=== PATIENT | female | born 1970 | race Caucasian/White ===

== ENCOUNTER 2017-02-15 10:22 | Inpatient (IN) | payer OTHER ==
[~2017-02-15] VITALS: Ht 165.1 cm; Wt 95.3 kg
[~2017-02-15 10:22] MED LIST: ALBUAER3 INH; AMIT24CA5 PO; BENA10TA PO; BETH25TA2 PO; BUTATAB6 PO; CYAN1000P IM; CYCL1TAB29 PO; DESM1TAB15 PO; DICY10CA12 PO; DULO1CAP3 PO; ESTR.625 PO; FLUC200T2 PO; FURO40TA PO; GABA600T PO; HYDR200T3 PO; HYDR4TAB PO; LEVO50TA4 PO; LINA290C PO; MAGICADU2 SWISH-SWAL; METO25TA3 PO; MYCO500T PO; PANT20 PO; REST0.05 EACH EYE; ZOLP10TA3 PO
[2017-02-15] MEDS: SODIUM CHLOR 0.9% 1000 ML INJ 1,000 ML IV SCH ×2 (15:19→23:54)
[2017-02-15] MEDS ORDERED: LACTULOSE SYRUP 20 GM/30 ML CUP PO PRN (15:30)
[2017-02-15] MEDS ORDERED: ONDANSETRON HCL 4 MG/2 ML VIAL IVP PRN (15:30)
[2017-02-15] MEDS ORDERED: BISACODYL 10 MG SUPP RECTAL PRN (15:30)
[2017-02-15] MEDS ORDERED: SODIUM CHLORIDE 0.9% FLUSH 10 ML FLUSH IV FLUSH PRN (15:30)
[2017-02-15] MEDS ORDERED: NALOXONE HCL 0.4 MG/ML AMP IV PUSH PRN (15:30)
--- NOTE | 2017-02-15 15:49 | HHI.HP ---
[facility]Staff Admission Diagnosis Diagnoses: Chief Complaint: Lightheadedness/multiple falls/hypotension Travel History International Travel<30 Days: No Contact w/Intl Traveler <30 Da: No History of Present Illness This is a 46-year-old female past medical history of lupus, fibromyalgia, chronic pain syndrome, and gastroparesis who presented with lightheadedness/ multiple falls. Patient stated that this has been ongoing problem for the past year. She stated that she was recently admitted to [facility] for the same reason a few weeks ago and she was not told why she was having multiple falls. Patient stated that she was also told that she had some acute renal failure at that time. She stated that symptoms recur this morning and which she felt very lightheadedness and when she would bend down she would pass out. Patient stated that she remember passing out. Denies any incontinence with the episode. Patient stated that she was recently changed to Dilaudid this month prior she was on tramadol for pain. Otherwise patient denies any urinary symptoms or upper respiratory symptoms. Denies any fevers or chills. She stated she continues to have good UOP. She stated that she does see a identification technician in [place] due to her lupus but was not able to tell me who. At the moment the only complaint that patient has is that she wants to eat food. Patient was seen in [place] in the ER when she was found to be hypotensive. She was given IV fluids and Levaquin with improvement in her blood pressure. All other review systems reviewed and negative. Past Family Social History Past Medical History Lupus, fibromyalgia, chronic pain syndrome, carpal tunnel syndrome, gastroparesis Past Surgical History Per patient abdominal surgery one year ago. Tracheostomy placement and removal. Partial removal or lungs due to empyema Reported Medications Current Medications Sodium Chloride 1,000 ml @ 100 mls/hr Q10H IV ; Start 02/15/17 at 15:19 Sodium Chloride (NS Flush) 2 ml UNSCH PRN IV FLUSH FLUSH AFTER USING IV ACCESS ; Start 02/15/17 at 15:30 Sodium Chloride (NS Flush) 2 ml BID IV FLUSH ; Start 02/15/17 at 21:00 Ondansetron HCl (Zofran Inj) 4 mg Q6H PRN IVP NAUSEA OR VOMITING; Start at 15:30; Stop 02/15/17 at 16:07; Status DC Naloxone HCl (Narcan Inj) 0.4 mg UNSCH PRN IV PUSH SEE LABEL COMMENTS; Start 02/15/17 at 15:30 Senna/Docusate Sodium (Diana-Colace) 1 tab BID PO ; Start 02/15/17 at 21:00 Magnesium Hydroxide (Milk Of Magnesia Liq) 30 ml Q12HR PRN PO MILD - MODERATE CONSTIPATION; Start 02/15/17 at 21:00 Sennosides (Senokot) 17.2 mg Q12HR PRN PO MODERATE - SEVERE CONSTIPATION; Start 02/15/17 at 21:00 Bisacodyl (Dulcolax Supp) 10 mg DAILY PRN RECTAL SEVERE CONSITIPATION; Start 02/15/17 at 15:30 Lactulose (Lactulose Liq) 30 ml DAILY PRN PO SEVERE CONSITIPATION; Start 02/15 at 15:30 Levofloxacin/ Dextrose 100 ml @ 100 mls/hr Q48H IV ; Start 02/17/17 at 09:00 Heparin Sodium (Porcine) (Heparin Inj) 5,000 units Q12HR SQ ; Start 02/15/17 at 21:00 Miscellaneous Information Patient in critical care unit? Ass... Q361D .XX ; Start 02/15/17 at 16:30 Chlorhexidine Gluconate (Chlorhexidine 2% Cloth) 3 pack DAILY@04 TOPICAL ; Start 02/16/17 at 04:00; Stop 02/20/17 at 04:01 Chlorhexidine Gluconate (Chlorhexidine 2% Cloth) 3 pack UNSCH PRN TOPICAL HYGIENIC CARE; Start 02/15/17 at 16:45; Stop 02/20/17 at 16:30 Pneumococcal Polyvalent Vaccine (Pneumovax-23 Inj) 25 mcg ONCE ONCE IM ; Start 02/16/17 at 10:00; Stop 02/16/17 at 10:01 Influenza Virus Vaccine (Flu (Quadrivalent) Vaccine Inj) 0.5 ml ONCE ONCE IM ; Start 02/16/17 at 10:00; Stop 02/16/17 at 10:01 Allergies: Coded Allergies: Penicillins (Verified Allergy, Severe, CAN NOT TAKE DUE TO LUPUS, 02/15/17 ) acetaminophen (Verified Allergy, Severe, Anaphylaxis, 02/15/17) hydrocodone (Unverified Allergy, Severe, Anaphylaxis, 02/15/17) ketorolac (Unverified Allergy, Severe, Anaphylaxis, 02/15/17) meperidine (Unverified Allergy, Severe, Anaphylaxis, 02/15/17) ondansetron (Unverified Allergy, Severe, HEADACHE, 02/15/17) oxycodone (Verified Allergy, Severe, Anaphylaxis, 02/15/17) penicillin G (Unverified Allergy, Severe, Anaphylaxis, 02/15/17) Active Ordered Medications Current Medications Sodium Chloride 1,000 ml @ 100 mls/hr Q10H IV ; Start 02/15/17 at 15:19 Sodium Chloride (NS Flush) 2 ml UNSCH PRN IV FLUSH FLUSH AFTER USING IV ACCESS ; Start 02/15/17 at 15:30 Sodium Chloride (NS Flush) 2 ml BID IV FLUSH ; Start 02/15/17 at 21:00 Ondansetron HCl (Zofran Inj) 4 mg Q6H PRN IVP NAUSEA OR VOMITING; Start at 15:30; Stop 02/15/17 at 16:07; Status DC Naloxone HCl (Narcan Inj) 0.4 mg UNSCH PRN IV PUSH SEE LABEL COMMENTS; Start 02/15/17 at 15:30 Senna/Docusate Sodium (Diana-Colace) 1 tab BID PO ; Start 02/15/17 at 21:00 Magnesium Hydroxide (Milk Of Magnesia Liq) 30 ml Q12HR PRN PO MILD - MODERATE CONSTIPATION; Start 02/15/17 at 21:00 Sennosides (Senokot) 17.2 mg Q12HR PRN PO MODERATE - SEVERE CONSTIPATION; Start 02/15/17 at 21:00 Bisacodyl (Dulcolax Supp) 10 mg DAILY PRN RECTAL SEVERE CONSITIPATION; Start 02/15/17 at 15:30 Lactulose (Lactulose Liq) 30 ml DAILY PRN PO SEVERE CONSITIPATION; Start 02/15 at 15:30 Levofloxacin/ Dextrose 100 ml @ 100 mls/hr Q48H IV ; Start 02/17/17 at 09:00 Heparin Sodium (Porcine) (Heparin Inj) 5,000 units Q12HR SQ ; Start 02/15/17 at 21:00 Miscellaneous Information Patient in critical care unit? Ass... Q361D .XX ; Start 02/15/17 at 16:30 Chlorhexidine Gluconate (Chlorhexidine 2% Cloth) 3 pack DAILY@04 TOPICAL ; Start 02/16/17 at 04:00; Stop 02/20/17 at 04:01 Chlorhexidine Gluconate (Chlorhexidine 2% Cloth) 3 pack UNSCH PRN TOPICAL HYGIENIC CARE; Start 02/15/17 at 16:45; Stop 02/20/17 at 16:30 Pneumococcal Polyvalent Vaccine (Pneumovax-23 Inj) 25 mcg ONCE ONCE IM ; Start 02/16/17 at 10:00; Stop 02/16/17 at 10:01 Influenza Virus Vaccine (Flu (Quadrivalent) Vaccine Inj) 0.5 ml ONCE ONCE IM ; Start 02/16/17 at 10:00; Stop 02/16/17 at 10:01 Family History She stated that all family members are healthy. Social History Patient denies any alcohol or illicit drug use. Denies any current tobacco use. Physical Exam Vital Signs Vital Signs Date Time Temp Pulse Resp B/P (MAP) Pulse Ox O2 Delivery O2 Flow Rate FiO2 02/15/17 16:20 98.9 109 18 119/65 (83) 94 Laboratory Tests Test 02/15/17 16:00 Current Medications Medications (Trade) Dose Ordered Sig/Adams Route PRN Reason Start Time Stop Time Status Last Admin Dose Admin Sodium Chloride 1,000 ml @ 100 mls/hr Q10H IV 02/15/17 15:19 Sodium Chloride (NS Flush) 2 ml UNSCH PRN IV FLUSH FLUSH AFTER USING IV ACCESS 02/15/17 15:30 Sodium Chloride (NS Flush) 2 ml BID IV FLUSH 02/15/17 21:00 Ondansetron HCl (Zofran Inj) 4 mg Q6H PRN IVP NAUSEA OR VOMITING 02/15/17 15:30 02/15/17 16:07 DC Naloxone HCl (Narcan Inj) 0.4 mg UNSCH PRN IV PUSH SEE LABEL COMMENTS 02/15/17 15:30 Senna/Docusate Sodium (Diana-Colace) 1 tab BID PO 02/15/17 21:00 Magnesium Hydroxide (Milk Of Magnesia Liq) 30 ml Q12HR PRN PO MILD - MODERATE CONSTIPATION 02/15/17 21:00 Sennosides (Senokot) 17.2 mg Q12HR PRN PO MODERATE - SEVERE CONSTIPATION 02/15/17 21:00 Bisacodyl (Dulcolax Supp) 10 mg DAILY PRN RECTAL SEVERE CONSITIPATION 02/15/17 15:30 Lactulose (Lactulose Liq) 30 ml DAILY PRN PO SEVERE CONSITIPATION 02/15/17 15:30 Levofloxacin/ Dextrose 100 ml @ 100 mls/hr Q48H IV 02/17/17 09:00 Heparin Sodium (Porcine) (Heparin Inj) 5,000 units Q12HR SQ 02/15/17 21:00 Miscellaneous Information Patient in critical care unit? Ass... Q361D .XX 02/15/17 16:30 Chlorhexidine Gluconate (Chlorhexidine 2% Cloth) 3 pack DAILY@04 TOPICAL 02/16/17 04:00 02/20/17 04:01 Chlorhexidine Gluconate (Chlorhexidine 2% Cloth) 3 pack UNSCH PRN TOPICAL HYGIENIC CARE 02/15/17 16:45 02/20/17 16:30 Pneumococcal Polyvalent Vaccine (Pneumovax-23 Inj) 25 mcg ONCE ONCE IM 02/16/17 10:00 02/16/17 10:01 Influenza Virus Vaccine (Flu (Quadrivalent) Vaccine Inj) 0.5 ml ONCE ONCE IM 02/16/17 10:00 02/16/17 10:01 Physical Exam GENERAL: This is a well-nourished, well-developed patient, in no apparent distress. SKIN: No rashes, ecchymoses or lesions. Cool and dry. HEAD: Atraumatic. Normocephalic. No temporal or scalp tenderness. EYES: Pupils equal round and reactive. Extraocular motions intact. No scleral icterus. No injection or drainage. ENT: Nose without bleeding, purulent drainage or septal hematoma. Throat without erythema, tonsillar hypertrophy or exudate. Uvula midline. Airway patent. NECK: Trachea midline. No JVD or lymphadenopathy. Supple, nontender, no meningeal signs. CARDIOVASCULAR: Regular rate and rhythm without murmurs, gallops, or rubs. RESPIRATORY: Clear to auscultation. Breath sounds equal bilaterally. No wheezes , rales, or rhonchi. GASTROINTESTINAL: Abdomen soft, non-tender, nondistended. No hepato-splenomegaly , or palpable masses. No guarding. MUSCULOSKELETAL: Extremities without clubbing, cyanosis, or edema. No joint tenderness, effusion, or edema noted. No calf tenderness. Negative Homans sign bilaterally. NEUROLOGICAL: Awake and alert. Cranial nerves II through XII intact. Motor and sensory grossly within normal limits. Five out of 5 muscle strength in all muscle groups. Normal speech. Caprini VTE Risk Assessment Caprini VTE Risk Assessment: Mod/High Risk (score >= 2) Caprini Risk Assessment Model Point Value = 1 Point Value = 2 Point Value = 3 Point Value = 5 Age 41-60 Minor surgery BMI > 25 kg/m2 Swollen legs Varicose veins or History of unexplained or recurrent spontaneous Oral contraceptives or hormone replacement Sepsis (< 1 month) Serious lung disease, including pneumonia (< 1 month) Abnormal pulmonary function Acute myocardial infarction Congestive heart failure (< 1 month) History of inflammatory bowel disease Medical patient at bed rest Age 61-74 Arthroscopic surgery Major open surgery (> 45 min) Laparoscopic surgery (> 45 min) Malignancy Confined to bed (> 72 hours) Immobilizing plaster cast Central venous access Age >= 75 History of VTE Family history of VTE Factor V Leiden Prothrombin [id number] Lupus anticoagulant Anticardiolipin antibodies Elevated serum homocysteine Heparin-induced thrombocytopenia Other congenital or acquired thrombophilia Stroke (< 1 month) Elective arthroplasty Hip, pelvis, or leg fracture Acute spinal cord injury (< 1 month) Prophylaxis Regimen Total Risk Factor Score Risk Level Prophylaxis Regimen 0-1 Low Early ambulation 2 Moderate Order ONE of the following: *Sequential Compression Device (SCD) *Heparin 5000 units SQ BID 3-4 Higher Order ONE of the following medications: *Heparin 5000 units SQ TID *Enoxaparin/Lovenox 40 mg SQ daily (WT < 150 kg, CrCl > 30 mL/min) *Enoxaparin/Lovenox 30 mg SQ daily (WT < 150 kg, CrCl > 10-29 mL/min) *Enoxaparin/Lovenox 30 mg SQ BID (WT < 150 kg, CrCl > 30 mL/min) AND/OR *Sequential Compression Device (SCD) 5 or more Highest Order ONE of the following medications: *Heparin 5000 units SQ TID (Preferred with Epidurals) *Enoxaparin/Lovenox 40 mg SQ daily (WT < 150 kg, CrCl > 30 mL/min) *Enoxaparin/Lovenox 30 mg SQ daily (WT < 150 kg, CrCl > 10-29 mL/min) *Enoxaparin/Lovenox 30 mg SQ BID (WT < 150 kg, CrCl > 30 mL/min) AND *Sequential Compression Device (SCD) Assessment and Plan Assessment and Plan 46-year-old female with chronic pain syndrome and fibromyalgia who presented with multiple falls and lightheadedness Lightheadedness -Labs reviewed from the clinic ER significant for UA suggesting possible UTI, leukocytosis 23,000, creatinine of 3.01. Patient was also found to be hypotensive with systolic blood pressure in the 70s while in the tone of. At the moment blood pressure has improved since then. -Most likely lightheadedness to hypotension. -Should improve with treatment hypertension. SIRS/Sepsis -UA suggest possible UTI. Chest x-ray showed minimal bilateral basilar airspace disease but patient asymptomatic in regards to her upper respiratory system. Patient does have leukocytosis and tachycardia with a possible source of infection. Urine cultures and blood cultures already obtained. -Treat as sepsis until it is ruled out. -Patient already given IV fluid bolus and iron IV maintenance fluids and blood pressure has improved. Continue with IV fluids. -Patient was given dose of Levaquin will continue Levaquin renal he does. -To monitor grossly. Hypotension -Maybe secondary to infection versus Dilaudid. -Blood pressure has improved drastically with IV fluids. -We'll continue IV fluids. -Patient to be monitor closely in the ICU. Acute renal failure -In December patient had creatinine of 1. -Patient states she is making good urine output. Most likely due to hypoperfusion. Will put patient on IV fluids. -Strict ins and outs. Avoid nephrotoxins. Consult identification technician. Asymptomatic bacteriuria -Since patient was found to be hypotensive, had a leukocytosis 23,000 and UA suggesting UTI will treat empirically for UTI. -Patient stated unable to take penicillin due to angioedema the throat. She was given a dose of Levaquin 750 mg in the ED. Will continue Levaquin renally dosed pending urine cultures. -Blood cultures also pending. -Continue to monitor clinically. Multiple falls in the past year -Most likely secondary to narcotic use. -Will monitor. -Consult PT. Lupus, fibromyalgia, chronic pain syndrome, gastroparesis, carpal tunnel syndrome -Will need to hold pain medication due to hypotension. -Patient was a transfer once medically list is updated will resume other medications. DVT prophylaxis -Heparin renally dose. Discussed Condition With patient, her [facility] nurse and her over the phone Physician Certification 2 Midnight Certification Type: Admission for Inpatient Services Order for Inpatient Services The services are ordered in accordance with Medicare regulations or non- Medicare payer requirements, as applicable. In the case of services not specified as inpatient-only, they are appropriately provided as inpatient services in accordance with the 2-midnight benchmark. Estimated LOS (days): 5 5 days is the estimated time the patient will need to remain in the hospital, assuming treatment plan goals are met and no additional complications. Post-Hospital Plan: [place] Audrey Hill MD Feb 15, 2017 15:49
[2017-02-15 16:00] VITALS: PULSE 111
[2017-02-15 16:20] VITALS: BP 119/65; PULSE 109; RESP 18; TEMP 98.9; O2SAT 94
[2017-02-15] MEDS ORDERED: CHLORHEXIDINE GLUCONATE 2 % 1 PACK (2 CLOTHS)(extra cloths) TOPICAL PRN (16:45)
--- NOTE | 2017-02-15 17:13 | PD.CONS ---
HPI Service Nephrology Consult Requested By Reason for Consult VANESSA Primary Care Physician Non-Staff History of Present Illness Ms. Funk has a complicated medical history. She has been diagnosed with lupus, fibromyalgia, DI, hypertension. She reports that she had renal biopsy because of proteinuria and hematuria at [facility] in September of this year. It was reportedly "normal". She has history of bowel perforation in February of last year which resulted in surgery that involved segmental resection of bowel, splenectomy. She also has had lobectomy (left lung) earlier this year for unclear reasons. She also has been told that she has DI and has been on desmopressin. Her creatinine was 1 in December. Today she went to [facility] in [place] and was noted to have creatinine of 3.1. She was hypotensive. UTI was also diagnosed. She apparently was confused. No confusion is apparent currently. Review of Systems Constitutional: COMPLAINS OF: Fatigue, DENIES: Fever, Weight gain Endocrine: COMPLAINS OF: Polyuria Ears, nose, mouth, throat: DENIES: Tinnitus Cardiovascular: DENIES: Chest pain, Palpitations Gastrointestinal: DENIES: Abdominal pain Integumentary: DENIES: Abnormal pigmentation Neurologic: DENIES: Abnormal gait, Headache Psychiatric: COMPLAINS OF: Confusion Past Family Social History Allergies: Coded Allergies: Penicillins (Verified Allergy, Severe, CAN NOT TAKE DUE TO LUPUS, 02/15/17 ) acetaminophen (Verified Allergy, Severe, Anaphylaxis, 02/15/17) hydrocodone (Unverified Allergy, Severe, Anaphylaxis, 02/15/17) ketorolac (Unverified Allergy, Severe, Anaphylaxis, 02/15/17) meperidine (Unverified Allergy, Severe, Anaphylaxis, 02/15/17) ondansetron (Unverified Allergy, Severe, HEADACHE, 02/15/17) oxycodone (Verified Allergy, Severe, Anaphylaxis, 02/15/17) penicillin G (Unverified Allergy, Severe, Anaphylaxis, 02/15/17) Past Medical History "Lupus" Fibromyalgia Hypertension Past Surgical History lobectomy Splenectomy Tonsillectomy Arthroscopic surgeries on the left knee Surgery for perforated bowel. Reported Medications Arpgxqjvgx-Wqsfbxbbncwlb-Aqdzqefh 50-325-40 Mg Tab 1 Tab PO Q4H PRN Do not exceed 6 tablets/day. Restasis Opth 0.05% (Cyclosporine Opth 0.05%) 0.05% Emul 1 Drop EACH EYE BID Premarin (Estrogens Conjugated) 0.625 Mg Tab 0.625 Mg PO DAILY Protonix (Pantoprazole Sodium) 20 Mg Tab 20 Mg PO DAILY Mycophenolate (Mycophenolate Mofetil) 500 Mg Tab 1,000 Mg PO BID Zolpidem (Zolpidem Tartrate) 10 Mg Tab 12.5 Mg PO HS PRN Metoprolol Tartrate 25 Mg Tab 25 Mg PO BID Linzess (Linaclotide) 290 Mcg Cap 290 Mcg PO DAILY Levothyroxine (Levothyroxine Sodium) 50 Mcg Tab 50 Mcg PO DAILY Hydroxychloroquine (Hydroxychloroquine Sulfate) 200 Mg Tab 200 Mg PO BID Takw with food Hydromorphone (Hydromorphone HCl) 4 Mg Tab 2 Mg PO TID Furosemide 40 Mg Tab 40 Mg PO BID Fluconazole 200 Mg Tab 200 Mg PO DAILY Gabapentin 600 Mg Tab 600 Mg PO TID Duloxetine DR (Duloxetine HCl) 60 Mg Capdr 60 Mg PO DAILY Dicyclomine (Dicyclomine HCl) 10 Mg Cap 10 Mg PO TID PRN Desmopressin (Desmopressin Acetate) 0.1 Mg Tab 0.1 Mg PO BID Flexeril (Cyclobenzaprine HCl) 10 Mg Tab 10 Mg PO BID Bethanechol 25 Mg Tab 25 Mg PO TID Benazepril (Benazepril HCl) 10 Mg Tab 10 Mg PO DAILY Cyanocobalamin Inj (Cyanocobalamin) 1,000 Mcg/Ml Inj 1,000 Mcg IM BIWEEKLY Amitiza (Lubiprostone) 24 Mcg Cap 24 Mg PO BID PRN Proair Hfa 8.5 GM Inh (Albuterol Sulfate) 90 Mcg/Act Aer 2 Puff INH BID PRN 108 mcg/actuation Active Ordered Medications Current Medications Medications (Trade) Dose Ordered Sig/Adams Route Start Time Stop Time Status Last Admin Sodium Chloride 1,000 ml @ 100 mls/hr Q10H IV 02/15/17 15:19 (NS Flush) 2 ml UNSCH PRN IV FLUSH 02/15/17 15:30 (NS Flush) 2 ml BID IV FLUSH 02/15/17 21:00 (Narcan Inj) 0.4 mg UNSCH PRN IV PUSH 02/15/17 15:30 (Diana-Colace) 1 tab BID PO 02/15/17 21:00 (Milk Of Magnesia Liq) 30 ml Q12HR PRN PO 02/15/17 21:00 (Senokot) 17.2 mg Q12HR PRN PO 02/15/17 21:00 (Dulcolax Supp) 10 mg DAILY PRN RECTAL 02/15/17 15:30 (Lactulose Liq) 30 ml DAILY PRN PO 02/15/17 15:30 Levofloxacin/ Dextrose 100 ml @ 100 mls/hr Q48H IV 02/17/17 09:00 (Heparin Inj) 5,000 units Q12HR SQ 02/15/17 21:00 Miscellaneous Information Patient in critical care unit? Ass... Q361D .XX 02/15/17 16:30 (Chlorhexidine 2% Cloth) 3 pack DAILY@04 TOPICAL 02/16/17 04:00 02/20/17 04:01 (Chlorhexidine 2% Cloth) 3 pack UNSCH PRN TOPICAL 02/15/17 16:45 02/20/17 16:30 (Pneumovax-23 Inj) 25 mcg ONCE ONCE IM 02/16/17 10:00 02/16/17 10:01 (Flu (Quadrivalent) Vaccine Inj) 0.5 ml ONCE ONCE IM 02/16/17 10:00 02/16/17 10:01 Family History reviewed, non contributory Social History with 5 children. No tobacco or ETOH Physical Exam Vital Signs Vital Signs Date Time Temp Pulse Resp B/P (MAP) Pulse Ox O2 Delivery O2 Flow Rate FiO2 02/15/17 16:20 98.9 109 18 119/65 (83) 94 02/15/17 16:00 111 Physical Exam GENERAL: awake, alert. SKIN: Warm and dry. HEAD: Normocephalic. EYES: No scleral icterus. No injection or drainage. NECK: Supple, trachea midline. No JVD or lymphadenopathy. CARDIOVASCULAR: Regular rate and rhythm without murmurs, gallops, or rubs. RESPIRATORY: Breath sounds equal bilaterally. No accessory muscle use. GASTROINTESTINAL: Abdomen soft, non-tender, nondistended. MUSCULOSKELETAL: No cyanosis, or edema. BACK: Nontender without obvious deformity. No CVA tenderness. Laboratory Laboratory Tests Test 02/15/17 16:00 Assessment and Plan Problem List: (1) Acute kidney injury ICD Codes: N17.9 - Acute kidney failure, unspecified Plan: VANESSA is likely due to hypotension, pre-renal azotemia. May have progressed to ATN. I do not believe lupus nephritis is playing a role. Continue IVF. Avoid nephrotoxic agents. Suspend antihypertensives and Lasix. Obtain renal US. Because of history of lupus, I will obtain GUILLERMO and complement levels. As mentioned above, she did have a renal biopsy in September of this year which was reportedly negative for lupus nephritis. (they can develop lupus flares periodically). Monitor urine output and renal function. (2) Essential (primary) hypertension ICD Codes: I10 - Essential (primary) hypertension Plan: she is maintained on Metoprolol and Benazepril both of which should be held because of hypotension. Monitor. Continue IVF. 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 She is definitely at risk for complications from multiple drug interactions and side effects. (4) UTI (urinary tract infection) ICD Codes: N39.0 - Urinary tract infection, site not specified Plan: She has been given Levaquin. (5) Lupus ICD Codes: L93.0 - Discoid lupus erythematosus Plan: See above. 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 Assessment and Plan Thanks for the consult. Laz Ross MD Feb 15, 2017 17:13
[2017-02-15 18:00] VITALS: PULSE 111
[2017-02-15 19:35] VITALS: O2SAT 94
[2017-02-15 20:00] VITALS: BP 102/56; PULSE 112; RESP 18; TEMP 100; O2SAT 95
[2017-02-15] MEDS: DOCUSATE SODIUM 50 MG/SENNA 8.6 MG TAB PO SCH (20:11)
[2017-02-15] MEDS: SODIUM CHLORIDE 0.9% FLUSH 10 ML FLUSH IV FLUSH SCH (20:11)
[2017-02-15] MEDS: HEPARIN SODIUM - SQ 10,000 UNITS/ML VIAL SQ SCH (20:11)
[2017-02-15] MEDS ORDERED: MAGNESIUM HYDROXIDE SUSP 30 ML CUP PO PRN (21:00)
[2017-02-15] MEDS ORDERED: SENNOSIDES 8.6 MG TAB PO PRN (21:00)
[2017-02-15 22:00] VITALS: PULSE 109
[2017-02-16] VITALS (14 sets, daily range): BP systolic 110–164; BP diastolic 58–97; PULSE 79–102; RESP 16–24; TEMP 98.3–99.5; O2SAT 94–100
[2017-02-16] MEDS ORDERED: CHLORHEXIDINE GLUCONATE 2 % 1 PACK (2 CLOTHS)(taper/protocol) TOPICAL SCH (04:00)
[2017-02-16 05:39] LABS: HEMATOCRIT 37.2 % (35.0-46.0); MEAN CELL VOLUME 94.6 FL (80.0-100.0); MEAN CORPUSCULAR HEMOGLOBIN 30.2 PG (27.0-34.0); MEAN CORPUSCULAR HGB CONC 31.9 % (32.0-36.0); PLATELET COUNT 302 TH/MM3 (150-450); RED BLOOD COUNT 3.93 MIL/MM3 (4.00-5.30); RED CELL DISTRIBUTION WIDTH 14.7 % (11.6-17.2); REVIEW FLAG FINAL; WHITE BLOOD COUNT 12.4 TH/MM3 (4.0-11.0)
[2017-02-16 06:12] LABS: BICARBONATE 21.7 MEQ/L (21.0-32.0); POTASSIUM 3.6 MEQ/L (3.5-5.1)
[2017-02-16] MEDS: DOCUSATE SODIUM 50 MG/SENNA 8.6 MG TAB PO SCH ×2 (09:21→21:24)
[2017-02-16] MEDS: HEPARIN SODIUM - SQ 10,000 UNITS/ML VIAL SQ SCH ×2 (09:22→21:25)
[2017-02-16] MEDS: SODIUM CHLORIDE 0.9% FLUSH 10 ML FLUSH IV FLUSH SCH ×2 (09:22→21:32)
[2017-02-16] MEDS ORDERED: PNEUMOCOCCAL POLYVALENT INJ 25 MCG/0.5 ML SYR IM ONE (10:00)
[2017-02-16] MEDS ORDERED: INFLUENZA VIRUS VACCINE (QUADRIVALENT) 0.5 ML SYR IM ONE (10:00)
--- NOTE | 2017-02-16 11:07 | HHI.PR ---
Subjective Remarks Follow-up for low blood pressure, infection Patient's is at the bedside in the interview. He stated that he has been taking the patient about 50 times in the hospital this year for the exact same problem. He stated that [facility] he stated that is because she's taking too much medication. Patient has no complaints. She remained afebrile. She has good urine output. Objective Vitals Vital Signs Date Time Temp Pulse Resp B/P (MAP) Pulse Ox O2 Delivery O2 Flow Rate FiO2 02/16/17 07:35 94 21 02/16/17 06:00 93 02/16/17 04:00 99.5 99 20 117/65 (82) 99 02/16/17 04:00 99 02/16/17 02:00 96 02/16/17 00:00 101 02/16/17 00:00 99.3 101 23 110/60 (77) 96 02/15/17 22:00 109 02/15/17 20:00 112 02/15/17 20:00 100.0 112 18 102/56 (71) 95 02/15/17 19:35 94 21 02/15/17 18:00 111 02/15/17 16:20 98.9 109 18 119/65 (83) 94 02/15/17 16:00 111 I/O 02/15/17 02/15/17 02/15/17 02/16/17 02/16/17 02/16/17 06:59 14:59 22:59 06:59 14:59 22:59 Intake Total 1420 ml 1600 ml Output Total 2000 ml 5350 ml Balance -580 ml -3750 ml Intake Oral 220 ml 600 ml IV Total 1200 ml 1000 ml Output Urine Total 2000 ml 5350 ml # Bowel Movements 2 Result Diagram: 02/16/1752002/16/17520 Objective Remarks GENERAL: in NAD CARDIOVASCULAR: Regular rate and rhythm without murmurs, gallops, or rubs. RESPIRATORY: Breath sounds equal bilaterally. No accessory muscle use. GASTROINTESTINAL: Abdomen soft, non-tender, nondistended. MUSCULOSKELETAL: No cyanosis, or edema. BACK: Nontender without obvious deformity. No CVA tenderness. Medications and IVs Current Medications Sodium Chloride 1,000 ml @ 100 mls/hr Q10H IV Last administered on 02/15/17t 23:54; Start 02/15/17 at 15:19 Sodium Chloride (NS Flush) 2 ml UNSCH PRN IV FLUSH FLUSH AFTER USING IV ACCESS ; Start 02/15/17 at 15:30 Sodium Chloride (NS Flush) 2 ml BID IV FLUSH Last administered on 02/16/17 09 :22; Start 02/15/17 at 21:00 Ondansetron HCl (Zofran Inj) 4 mg Q6H PRN IVP NAUSEA OR VOMITING; Start at 15:30; Stop 02/15/17 at 16:07; Status DC Naloxone HCl (Narcan Inj) 0.4 mg UNSCH PRN IV PUSH SEE LABEL COMMENTS; Start 02/15/17 at 15:30 Senna/Docusate Sodium (Diana-Colace) 1 tab BID PO Last administered on 09:21; Start 02/15/17 at 21:00 Magnesium Hydroxide (Milk Of Magnesia Liq) 30 ml Q12HR PRN PO MILD - MODERATE CONSTIPATION; Start 02/15/17 at 21:00 Sennosides (Senokot) 17.2 mg Q12HR PRN PO MODERATE - SEVERE CONSTIPATION; Start 02/15/17 at 21:00 Bisacodyl (Dulcolax Supp) 10 mg DAILY PRN RECTAL SEVERE CONSITIPATION; Start 02/15/17 at 15:30 Lactulose (Lactulose Liq) 30 ml DAILY PRN PO SEVERE CONSITIPATION; Start 02/15 at 15:30 Levofloxacin/ Dextrose 100 ml @ 100 mls/hr Q48H IV ; Start 02/17/17 at 09:00 Heparin Sodium (Porcine) (Heparin Inj) 5,000 units Q12HR SQ Last administered on 02/16/17 09:22; Start 02/15/17 at 21:00 Miscellaneous Information Patient in critical care unit? Ass... [id number] .XX ; Start 02/15/17 at 16:30 Chlorhexidine Gluconate (Chlorhexidine 2% Cloth) 3 pack DAILY@04 TOPICAL Last administered on 02/16/17 04:00; Start 02/16/17 at 04:00; Stop 02/20/17 at 04 :01 Chlorhexidine Gluconate (Chlorhexidine 2% Cloth) 3 pack UNSCH PRN TOPICAL HYGIENIC CARE; Start 02/15/17 at 16:45; Stop 02/20/17 at 16:30 Pneumococcal Polyvalent Vaccine (Pneumovax-23 Inj) 25 mcg ONCE ONCE IM ; Start 02/16/17 at 10:00; Stop 02/16/17 at 10:01; Status DC Influenza Virus Vaccine (Flu (Quadrivalent) Vaccine Inj) 0.5 ml ONCE ONCE IM ; Start 02/16/17 at 10:00; Stop 02/16/17 at 10:01; Status DC A/P Assessment and Plan 46-year-old female with chronic pain syndrome and fibromyalgia who presented with multiple falls and lightheadedness Lightheadedness -Labs reviewed from the clinic ER significant for UA suggesting possible UTI, leukocytosis 23,000, creatinine of 3.01. Patient was also found to be hypotensive with systolic blood pressure in the 70s while in [place]. -Resolved after she was given a bolus of IV fluids. -Most likely secondary to hypotension from medication. SIRS/Sepsis -UA suggest possible UTI. Chest x-ray showed minimal bilateral basilar airspace disease but patient asymptomatic in regards to her upper respiratory system. Patient does have leukocytosis and tachycardia with a possible source of infection. Urine cultures and blood cultures already obtained. -Drastic improvement and labs. Pending final cultures. Due to Levaquin. Hypotension, RESOLVED. -Based hospital course and patient's response most likely secondary to medication especial her pain medication -This has been a repeated problem in which she had multiple admissions to [facility]. -Educated patient and her extensively on her medication. Acute renal failure -RESOLVED. Creatinine is back to 1. Most likely secondary to hypotension. -Nephrology following. Asymptomatic bacteriuria -Continue Levaquin pending cultures. Multiple falls in the past year -Most likely secondary to narcotic use. -PT consulted. Lupus, fibromyalgia, chronic pain syndrome, gastroparesis, carpal tunnel syndrome -Dealt with patient's nurse to update her medication list since her medication list was not updated last night. -Once medication list is updated will gradually restart medication. DVT prophylaxis -Heparin renally dose. Discharge Planning Patient can be [place] [facility] [place] If she continues to well and blood cultures are negative anticipate discharged tomorrow. Audrey Hill MD Feb 16, 2017 11:07
[2017-02-16] MEDS ORDERED: CYAN1TAB24 IM (11:18)
[2017-02-16] MEDS ORDERED: ESTR0.62 VAGINAL (11:18)
[2017-02-16] MEDS ORDERED: REST0.05 EACH EYE (11:18)
[2017-02-16] MEDS ORDERED: VENTAER INH (11:18)
[2017-02-16] MEDS ORDERED: IBUP-1129 PO (11:21)
--- NOTE | 2017-02-16 12:57 | HHI.NPPN ---
Subjective Renal Failure: Acute Interval History Her renal function has improved. She wants the catheter out. (Fariba Abdullahi) Objective Data Data Vital Signs Date Time Temp Pulse Resp B/P (MAP) Pulse Ox O2 Delivery O2 Flow Rate FiO2 02/16/17 07:35 94 21 02/16/17 06:00 93 02/16/17 04:00 99.5 99 20 117/65 (82) 99 02/16/17 04:00 99 02/16/17 02:00 96 02/16/17 00:00 101 02/16/17 00:00 99.3 101 23 110/60 (77) 96 02/15/17 22:00 109 02/15/17 20:00 112 02/15/17 20:00 100.0 112 18 102/56 (71) 95 02/15/17 19:35 94 21 02/15/17 18:00 111 02/15/17 16:20 98.9 109 18 119/65 (83) 94 02/15/17 16:00 111 (Fariba Abdullahi) -: 02/16/17 0521 02/16/17 0521 Tubes & Lines: Chong (Fariba Abdullahi) Physical Exam General Appearance: Well Developed, No Acute Distress, Comfortable (Fariba Abdullahi) Ears & Nose Ears & Nose Exam: Tympanic Membranes Normal (Fariba Abdullahi) Pulmonary Resp Exam: Clear Bilaterally, Breath Sounds Equal (Fariba Abdullahi) Cardiology CV Exam: Regular, Normal Sinus Rhythm (Fariba Abdullahi) Gastrointestinal/Abdomen GI Exam: Soft, Non-Tender, Bowel Sounds Present (Fariba Abdullahi) Musculoskeletal MS Exam: Joints Intact, Normal Gait (Fariba Abdullahi) Integumentary Skin Exam: Clear, Warm, Dry, Intact (Fariba Abdullahi) Extremeties Extremities Exam: No Edema, Pedal Pulses Palpable (Fariba Abdullahi) Neurologic Neuro Exam: Alert, Awake, Oriented, Speech Clear, Moving All Extremities (Fariba Abdullahi) Assessment/Plan Discussed Condition With: Patient Assessment Summary: VANESSA/Acute Renal Failure Problem List: (1) Acute kidney injury ICD Codes: N17.9 - Acute kidney failure, unspecified Plan: VANESSA is likely due to hypotension, and pre-renal azotemia. US was negative. Renal function has improved with IVF. She is non oliguric. Taper off IVF Remove chong today. GUILLERMO is in process, but complement levels are not low. Unlikely lupus nephritis. Biopsy in [place] did not show renal involvement. She is on antirejection medication, follows with opal polisher in [place]. Will defer further treatment to him. (2) Essential (primary) hypertension ICD Codes: I10 - Essential (primary) hypertension Plan: Resume home antihypertensives when indicated (3) Polypharmacy ICD Codes: Z79.899 - Other supervisor long goods (current) drug therapy Plan: Her medication profile was reviewed. She is definitely at risk for complications from multiple drug interactions and side effects. (4) UTI (urinary tract infection) ICD Codes: N39.0 - Urinary tract infection, site not specified Plan: She has been given Levaquin. (5) Lupus ICD Codes: L93.0 - Discoid lupus erythematosus Plan: See above. After discharge defer treatment to her local opal polisher. Plan We will sign off at this time. (Fariba Abdullahi) Plan patient was seen and examined. Agree with above assessment and plan. Reconsider continued treatment with CellCept, may not be indicated, however I do not know all the details of her past history. Will defer to her opal polisher in [place]. (Laz Ross MD) Fariba Abdullahi Feb 16, 2017 12:57 Laz Ross MD Feb 16, 2017 18:01
[2017-02-16] MEDS ORDERED: ZOLPIDEM TARTRATE 10 MG TAB PO PRN (15:30)
[2017-02-16 16:10] LABS: ANA SCREEN POS (NEG)
[2017-02-16] MEDS: GABAPENTIN 300 MG CAP PO SCH (17:14)
[2017-02-16] MEDS: SODIUM CHLOR 0.9% 1000 ML INJ 1,000 ML IV SCH (17:15)
[2017-02-16] MEDS: LEVOFLOXACIN 750 MG TAB PO SCH (17:18)
[2017-02-16] MEDS: DULoxetine HCl DR 60 MG CAP PO SCH (17:18)
[2017-02-16] MEDS ORDERED: LUBIPROSTONE 24 MCG PO (18:00)
[2017-02-16] MEDS: HYDROmorphone HCL 2 MG TAB PO SCH (19:14)
[2017-02-16] MEDS: BETHANECHOL CHL 25 MG TAB PO SCH (19:14)
[2017-02-16] MEDS: NYSTAT/DIPHENHY/LIDO MOUTHWASH (Adult) 120ML SWISH-SWAL SCH ×2 (21:00→21:25)
[2017-02-16] MEDS ORDERED: RESTASIS OPTH EACH EYE SCH (21:00)
[2017-02-16] MEDS: METOPROLOL TARTRATE 25 MG TAB PO SCH (21:23)
[2017-02-16] MEDS: CYCLOBENZAPRINE HCL 10 MG TAB PO SCH (21:24)
[2017-02-16] MEDS: DESMOPRESSIN ACETATE 0.2 MG TAB PO SCH (21:24)
[2017-02-16] MEDS: LISINOPRIL 10 MG TAB PO SCH (21:31)
[2017-02-16] MEDS: MYCOPHENOLATE MOFETIL 500 MG TAB PO SCH (21:31)
[2017-02-16] MEDS: HYDROXYCHLOROQUINE SULFATE 200 MG TAB PO SCH (23:37)
[2017-02-17] VITALS (7 sets, daily range): BP systolic 108–175; BP diastolic 71–107; PULSE 67–83; RESP 16–20; TEMP 97.4–99.2; O2SAT 95–100
[2017-02-17] MEDS: SODIUM CHLOR 0.9% 1000 ML INJ 1,000 ML IV SCH (05:15)
[2017-02-17] MEDS: MYCOPHENOLATE MOFETIL 500 MG TAB PO SCH ×2 (05:18→17:56)
[2017-02-17] MEDS ORDERED: LEVOTHYROXINE SODIUM 50 MCG TAB PO SCH (06:00)
[2017-02-17 08:24] LABS: HEMATOCRIT 33.6 % (35.0-46.0); MEAN CORPUSCULAR HEMOGLOBIN 31.4 PG (27.0-34.0); MEAN CORPUSCULAR HGB CONC 33.4 % (32.0-36.0); PLATELET COUNT 270 TH/MM3 (150-450); RED BLOOD COUNT 3.58 MIL/MM3 (4.00-5.30); REVIEW FLAG FINAL
[2017-02-17 08:48] LABS: BICARBONATE 23.6 MEQ/L (21.0-32.0); POTASSIUM 3.9 MEQ/L (3.5-5.1)
[2017-02-17] MEDS ORDERED: FLUCONAZOLE 200 MG TAB PO SCH (09:00)
[2017-02-17] MEDS ORDERED: ESTROGENS CONJUGATED 0.625 MG TAB PO SCH (09:00)
[2017-02-17] MEDS ORDERED: LINZESS 290 MCG PO SCH (09:00)
[2017-02-17] MEDS ORDERED: PANTOPRAZOLE SOD 20 MG DELAYED RELEASE TAB PO SCH (09:00)
[2017-02-17] MEDS ORDERED: LEVOFLOXACIN 500 MG PREMIX INJ 100 ML IV SCH (09:00)
[2017-02-17] MEDS: GABAPENTIN 300 MG CAP PO SCH ×3 (09:15→17:53)
[2017-02-17] MEDS: DESMOPRESSIN ACETATE 0.2 MG TAB PO SCH (09:15)
[2017-02-17] MEDS: HYDROXYCHLOROQUINE SULFATE 200 MG TAB PO SCH (09:15)
[2017-02-17] MEDS: HEPARIN SODIUM - SQ 10,000 UNITS/ML VIAL SQ SCH (09:16)
[2017-02-17] MEDS: METOPROLOL TARTRATE 25 MG TAB PO SCH (09:16)
[2017-02-17] MEDS: DULoxetine HCl DR 60 MG CAP PO SCH (09:16)
[2017-02-17] MEDS: BETHANECHOL CHL 25 MG TAB PO SCH ×3 (09:16→17:53)
[2017-02-17] MEDS: CYCLOBENZAPRINE HCL 10 MG TAB PO SCH (09:16)
[2017-02-17] MEDS: LISINOPRIL 10 MG TAB PO SCH (09:16)
[2017-02-17] MEDS: DOCUSATE SODIUM 50 MG/SENNA 8.6 MG TAB PO SCH (09:17)
[2017-02-17] MEDS: HYDROmorphone HCL 2 MG TAB PO SCH ×3 (09:17→17:53)
[2017-02-17] MEDS: SODIUM CHLORIDE 0.9% FLUSH 10 ML FLUSH IV FLUSH SCH (09:17)
[2017-02-17] MEDS: NYSTAT/DIPHENHY/LIDO MOUTHWASH (Adult) 120ML SWISH-SWAL SCH ×2 (09:18→12:00)
[2017-02-17] MEDS ORDERED: LEVA750T9 PO (10:54)
--- NOTE | 2017-02-17 10:54 | HHI.DCPOC ---
Discharge Care Plan Diagnosis: (1) Altered mental status (2) Polypharmacy (3) Acute kidney injury Goals to Promote Your Health * To prevent worsening of your condition and complications * To maintain your health at the optimal level Directions to Meet Your Goals Take your medications as prescribed Follow your dietary instruction Follow activity as directed Keep your appointments as scheduled Take your immunizations and boosters as scheduled If your symptoms worsen call your PCP, if no PCP go to Urgent Care Center or Emergency Room Smoking is Dangerous to Your Health. Avoid second hand smoke Call the 24-hour hour crisis hotline for domestic abuse at Audrey Hill MD Feb 17, 2017 10:54
--- NOTE | 2017-02-17 10:56 | HHI.DS ---
Discharge Summary Admission Date Feb 15, 2017 at 14:50 Discharge Date: Feb 17, 2017 Admitting Diagnosis (1) Altered mental status ICD Code: R41.82 - Altered mental status, unspecified Diagnosis: Principal (2) Polypharmacy ICD Code: Z79.899 - Other halfway (current) drug therapy Diagnosis: Principal (3) Acute kidney injury ICD Code: N17.9 - Acute kidney failure, unspecified Diagnosis: Principal (4) Pneumonia ICD Code: J18.9 - Pneumonia, unspecified organism Diagnosis: Principal (5) Essential (primary) hypertension ICD Code: I10 - Essential (primary) hypertension Diagnosis: Principal Procedures See hospital course. Brief History - From Admission This is a 46-year-old female past medical history of lupus, fibromyalgia, chronic pain syndrome, and gastroparesis who presented with lightheadedness/ multiple falls. Patient stated that this has been ongoing problem for the past year. She stated that she was recently admitted to [facility] for the same reason a few weeks ago and she was not told why she was having multiple falls. Patient stated that she was also told that she had some acute renal failure at that time. She stated that symptoms recur this morning and which she felt very lightheadedness and when she would bend down she would pass out. Patient stated that she remember passing out. Denies any incontinence with the episode. Patient stated that she was recently changed to Dilaudid this month prior she was on tramadol for pain. Otherwise patient denies any urinary symptoms or upper respiratory symptoms. Denies any fevers or chills. She stated she continues to have good UOP. She stated that she does see a finished metal repairer in [place] due to her lupus but was not able to tell me who. At the moment the only complaint that patient has is that she wants to eat food. Patient was seen in [place] in the ER when she was found to be hypotensive. She was given IV fluids and Levaquin with improvement in her blood pressure. All other review systems reviewed and negative. CBC/BMP: 02/17/17 0755 02/17/17 0755 Significant Findings Laboratory Tests Test 02/15/17 16:00 02/15/17 19:51 02/15/17 23:45 02/16/17 05:21 Anti-Nuclear Antibody Screen POS (NEG) White Blood Count 12.4 TH/MM3 (4.0-11.0) Red Blood Count 3.93 MIL/MM3 (4.00-5.30) Mean Corpuscular Hemoglobin Concent 31.9 % (32.0-36.0) Creatinine 1.01 MG/DL (0.50-1.00) Albumin 3.3 GM/DL (3.4-5.0) Phosphorus Level 2.1 MG/DL (2.5-4.9) Chloride Level 110 MEQ/L (98-107) Estimat Glomerular Filtration Rate 59 ML/MIN (>89) Test 02/17/17 07:55 Red Blood Count 3.58 MIL/MM3 (4.00-5.30) Hemoglobin 11.2 GM/DL (11.6-15.3) Hematocrit 33.6 % (35.0-46.0) Chloride Level 111 MEQ/L (98-107) Estimat Glomerular Filtration Rate 78 ML/MIN (>89) PE at Discharge GENERAL: in NAD CARDIOVASCULAR: Regular rate and rhythm without murmurs, gallops, or rubs. RESPIRATORY: Breath sounds equal bilaterally. No accessory muscle use. GASTROINTESTINAL: Abdomen soft, non-tender, nondistended. MUSCULOSKELETAL: No cyanosis, or edema. BACK: Nontender without obvious deformity. No CVA tenderness. NEURO Alert and ambulating hallway Pt update on day of discharge Follow-up for altered mental status, polypharmacy, acute renal failure Patient was found ambulating down the hallway. She states she is very anxious to go home. Patient stated that she is back to her baseline. Patient stated that she now understand what I was talking about. She stated that she has been taking her medication wrong. She stated that she would miss dosage of her medication so will take double. She feels that she understands what to do now. Patient has good urine output. No events reported. Hospital Course 46-year-old female with chronic pain syndrome and fibromyalgia who presented with multiple falls and lightheadedness Lightheadedness -Labs reviewed from the clinic ER significant for UA suggesting possible UTI, leukocytosis 23,000, creatinine of 3.01. Patient was also found to be hypotensive with systolic blood pressure in the 70s while in [place]. -Resolved after she was given a bolus of IV fluids. -Most likely secondary to hypotension from medication. SIRS/Sepsis -UA suggest possible UTI. Chest x-ray showed minimal bilateral basilar airspace disease but patient asymptomatic in regards to her upper respiratory system. Patient does have leukocytosis and tachycardia with a possible source of infection. Urine cultures and blood cultures and negative. -Labs improved with hospital course. Patient was treated empirically for pneumonia with Levaquin. Hypotension, RESOLVED. -Based hospital course and patient's response most likely secondary to polypharmacy and noncompliance with medication regimen. -This has been a repeated problem in which she had multiple admissions to [facility]. -Educated patient and her extensively on her medication. Acute renal failure -RESOLVED with IV fluids. Creatinine is back to 1. Most likely secondary to hypotension. -Nephrology following. Multiple falls in the past year -Most likely secondary to narcotic use. -PT consulted but the time of discharge patient was walking in the hallway by herself with no difficulty. Lupus, fibromyalgia, chronic pain syndrome, gastroparesis, carpal tunnel syndrome -His medication resumed except for her pain medication. Once her blood pressure improved her pain medication was restarted. Her Lasix was decreased secondary to hypotension, acute renal failure and dehydration. Patient told this is most likely secondary to Lasix use. -Extensive education was given to patient that she will need to see her primary care physician to review all her medication again to see if what was recommended is helping patient. Pt Condition on Discharge: Good Discharge Disposition: Discharge Home Discharge Time: > 30 minutes Discharge Instructions DIET: Follow Instructions for: Heart Healthy Diet Activities you can perform: Regular-No Restrictions Follow up Referrals: Nephrology - 2 Weeks PCP Follow-up - 1 Week SNF/[facility]/ [facility] New Medications: Levofloxacin (Levaquin) 750 Mg Tablet 750 MG PO Q24H for infection, #3 MG 0 Refills Continued Medications: Albuterol 18 GM Inh (Ventolin Hfa 18 GM Inh) 90 Mcg/Act Aer 2 PUFF INH DAILY PRN for SHORTNESS OF BREATH, #1 INHALER 0 Refills Albuterol 8.5 GM Inh (Proair Hfa 8.5 GM Inh) 90 Mcg/Act Aer 2 PUFF INH BID PRN for SHORTNESS OF BREATH, #1 INHALER 0 Refills 108 mcg/actuation Benazepril (Benazepril) 10 Mg Tab 10 MG PO DAILY for Blood Pressure Management, #30 TAB 0 Refills Bethanechol (Bethanechol) 25 Mg Tab 25 MG PO TID for Urinary Symptom Managemen, TAB 0 Refills Mfdchvramu-Dbuvhkkwmojti-Foyntmqj (Aqdhwlujkf-Tbctsposevrsp-Lcrydpib) 50-325-40 Mg Tab 1 TAB PO Q4H PRN for HEADACHE, TAB 0 Refills Do not exceed 6 tablets/day. Cyanocobalamin (B12) 1,000 Mcg Tab 1000 MCG IM biweekly Cyanocobalamin Inj (Cyanocobalamin Inj) 1,000 Mcg/Ml Inj 1000 MCG IM BIWEEKLY, #1 VIAL 0 Refills Cyclobenzaprine (Flexeril) 10 Mg Tab 10 MG PO BID for Muscle Spasm, #90 TAB 0 Refills Cyclosporine Opth 0.05% (Restasis Opth 0.05%) 0.05% Emul 1 DROP EACH EYE BID for Dry Eye, #1 BOX 0 Refills Cyclosporine Opth 0.05% (Restasis Opth 0.05%) 0.05% Emul 1 DROP EACH EYE BID for Dry Eye, #1 BOX 0 Refills Desmopressin (Desmopressin) 0.1 Mg Tab 0.1 MG PO BID, TAB 0 Refills Dicyclomine (Dicyclomine) 10 Mg Cap 10 MG PO PRN PRN for Bowel Management, CAP [address] (Duloxetine DR) 60 Mg Capdr 60 MG PO DAILY, #30 CAP 0 Refills Estrogens, Conjugated (Premarin) 0.625 Mg Tab 0.625 MG PO DAILY for Estrogen Supplements, #30 TAB 0 Refills Estrogens, Conjugated Vaginal (Premarin Vaginal) 0.625 Mg/Gm Cream 30 MG VAGINAL HS for Estrogen Supplements, #1 TUBE 0 Refills Fluconazole (Fluconazole) 200 Mg Tab 200 MG PO DAILY for Infection, TAB 0 Refills Gabapentin (Gabapentin) 600 Mg Tab 600 MG PO TID, #90 TAB 0 Refills Hydromorphone (Hydromorphone) 4 Mg Tab 2 MG PO TID, TAB 0 Refills Hydroxychloroquine (Hydroxychloroquine) 200 Mg Tab 200 MG PO BID, #60 TAB 0 Refills Takw with food Levothyroxine (Levothyroxine) 50 Mcg Tab 50 MCG PO DAILY for Thyroid, #30 TAB 0 Refills Linaclotide (Linzess) 290 Mcg Cap 290 MCG PO DAILY, CAP 0 Refills Lubiprostone (Amitiza) 24 Mcg Cap 24 MCG PO BID PRN for CONSTIPATION, CAP 0 Refills Metoprolol Tartrate (Metoprolol Tartrate) 25 Mg Tab 25 MG PO BID, #60 TAB 0 Refills Mycophenolate (Mycophenolate) 500 Mg Tab 1000 MG PO BID for Immunosuppression, #120 TAB 0 Refills Fyapzjin-Anlilsflxiedetz-Cwabzhzzh Liq (Magic Mouthwash Adult Liq) 120 Ml Susp 10 ML SWISH-SWAL ACHS for Mouth sores for 5 Days, #120 ML 0 Refills Each 5mL contains: Nystatin 200,000units, Diphenhydramine 4.25mg, Viscous Lidocaine 10mg, Cintron syrup 0.8 mL Pantoprazole (Protonix) 20 Mg Tab 40 MG PO DAILY for Reflux, #30 TAB 0 Refills Zolpidem (Zolpidem) 10 Mg Tab 12.5 MG PO HS PRN for INSOMNIA, TAB 0 Refills Discontinued Medications: Furosemide (Furosemide) 40 Mg Tab 40 MG PO BID, #60 TAB 0 Refills Ibuprofen (Motrin Ib) 200 Mg Tablet 800 MG PO DAILY Audrey Hill MD Feb 17, 2017 10:56
--- NOTE | 2017-02-17 11:49 | HHI.FF ---
Face to Face Verification Diagnosis: (1) Altered mental status (2) Polypharmacy (3) Acute kidney injury Home Health Nursing Order: Medical education Signs/symptoms of disease process Medication education-adverse effect Nursing assessment with vital signs Instructions: polypharmacy causing hypotension and renal failure I have seen patient Sowmya Funk on 02/17/17. My clinical findings support the need for the requested home health care services because: Impaired cognition/judgement I certify that my clinical findings support that this patient is homebound because: Impaired cognitive ability/safety Audrey Hill MD Feb 17, 2017 11:49
[2017-02-17] MEDS: LEVOFLOXACIN 750 MG TAB PO SCH (13:14)
[2017-02-18 11:56] LABS: ANA TITER QUANT 1:40 (NEG)
[2017-02-23] MEDS ORDERED: CYANOCOBALAMIN 1000 MCG/ML VIAL IM SCH (09:00)
== END 2017-02-17 19:05 | disposition home or self-care (01) | DRG 315 ==
LOC: NEDDLT 14:32 → HIMW 14:50 → N04B 02-16 18:36
PROVIDERS: ADMIT Family Medicine; ATTEND Family Medicine
DX: I95.9 Hypotension, unspecified (principal); N17.9 Acute kidney failure, unspecified; N39.0 Urinary tract infection, site not specified; K31.84 Gastroparesis; M79.7 Fibromyalgia; G89.4 Chronic pain syndrome; I10 Essential (primary) hypertension; L93.0 Discoid lupus erythematosus; R29.6 Repeated falls; Z23 Encounter for immunization; Z88.0 Allergy status to penicillin
CPT/HCPCS: 70450; 71010; 80048; 80053; 80069; 80307; 81001; 82550; 82570; 82948; 83605; 84300; 84484; 84702; 85025; 85027; 85610; 85730; 86038; 86039; 86160; 87040; 87086; 87641; 90686; 90732; 93005; 96361; 96365; 96375; 96376; J1644; J1956; J2310; J7030; J7517; Q2038